=== PATIENT | male | born 1975 | race Two or more races ===

== ENCOUNTER 2020-09-27 18:47 | Emergency (ER) | payer OTHER ==
[~2020-09-27] VITALS: Ht 170.2 cm; Wt 99.0 kg
[2020-09-27 19:06] VITALS: BP 129/81
--- NOTE | 2020-09-27 19:40 | PHYS DOC ---
Past History Past Medical History: Other Additional Past Medical Histor: prostitis (PERCY SAMPSON APRN) Past Surgical History: Other Additional Past Surgical Histo: prk, vasectomy,rt meniscous removed (PERCY SAMPSON APRN) Alcohol Use: None (PERCY SAMPSON APRN) Adult General Chief Complaint Chief Complaint: KNEE INJURY HPI HPI Patient is a 45-year-old male patient who presents with left knee pain. Patient reports he had been working out at the gym, when he had lateral movement, and felt some pain on the lateral side of his left knee. States he has had some difficulty walking on his leg since that time, states he has been walking with a limp. Reports he has previously injured his right knee, in his left hip, states he thinks he may have just been compensating little more which caused the injury to his left knee today. States he has been putting ice on it, which has helped. Reports he does take meloxicam for his other discomfort, it does seem to be helping his pain somewhat. States he has seen orthopedics, has an upcoming orth opedics appointment for his hip. (PERCY SAMPSON APRN) Review of Systems Review of Systems Constitutional: Denies fever or chills [] Musculoskeletal: Denies back pain or joint pain other than to left knee, reports discomfort to lateral knee [] Integument: Denies rash or skin lesions [] Neurologic: Denies headache, focal weakness or sensory changes [] All other systems were reviewed and found to be within normal limits, except as documented in this note. (PERCY SAMPSON APRN) Allergies Allergies Allergies Coded Allergies Type Severity Reaction Last Updated Verified No Known Drug Allergies 09/27/20 No (PERCY SAMPSON APRN) Physical Exam Physical Exam Constitutional: Well developed, well nourished, no acute distress, non-toxic appearance. [] Neck: Normal range of motion, no tenderness, supple, no stridor. [] Cardiovascular:Heart rate regular rhythm, no murmur [] Lungs & Thorax: Bilateral breath sounds clear to auscultation [] Abdomen: Bowel sounds normal, soft, no tenderness, no masses, no pulsatile masses. [] Skin: Warm, dry, no erythema, no rash. [] Back: No tenderness, no CVA tenderness. [] Extremities: No tenderness, no cyanosis, no clubbing, ROM intact, no edema. Laxity and Discomfort on lateral manipulation. Full active and passive range of motion to extremity with no discomfort on motion [] Neurologic: Alert and oriented X 3, normal motor function, normal sensory function, no focal deficits noted. [] Psychologic: Affect normal, judgement normal, mood normal. [] (PECRY SAMPSON APRN) Current Patient Data Vital Signs Vital Signs Date Time Temp Pulse Resp B/P (MAP) Pulse Ox O2 Delivery O2 Flow Rate FiO2 09/27/20 19:06 98.4 80 18 (PERCY SAMPSON APRN) EKG EKG [] (PERCY SAMPSON APRN) Radiology/Procedures Radiology/Procedures no acute displaced fracture per Dr Prather @ 2002. [] (PERCY SAMPSON APRN) Heart Score Risk Factors: Risk Factors: DM, Current or recent (<one month) smoker, HTN, HLP, family history of CAD, obesity. Risk Scores: Risk Factors: DM, Current or recent (<one month) smoker, HTN, HLP, family history of CAD, obesity. (PERCY SAMPSON APRN) Course & Med Decision Making Course & Med Decision Making Pertinent Labs and Imaging studies reviewed. (See chart for details) [Discussed findings with patient, without noted fracture, discussed use of knee immobilizer, ice, ibuprofen, rest. Patient agreed with this plan patient has follow-up with orthopedics for other injury already have his right hip, will follow up with them as needed. Will keep patient immobilizer for 7 days, recommend follow-[place] to [place]evaluate any and consideration for orthopedics follow-up. Patient agreed with this plan of care with no further questions or concerns (PERCY SAMPSON APRN) Dragon Disclaimer Dragon Disclaimer This electronic medical record was generated, in whole or in part, using a voice recognition dictation system. (PERCY SAMPSON APRN) Departure Departure: Impression: Primary Impression: Sprain of lateral collateral ligament of left knee, initial encounter Disposition: 01 DC HOME SELF CARE/HOMELESS Condition: GOOD Referrals: PCP,UNKNOWN (PCP) Patient Instructions: Combined Knee Ligament Sprain-SportsMed, Ligament Sprain Additional Instructions: As we discussed, where the knee immobilizer for the next 7 days anytime you are up moving around. If you are unable to wear it for a period of time, use an Herman wrap to help support it a little bit try to avoid bending the knee as much as possible. Follow-up with your primary care provider in a week [place] to recheck your symptoms. If you continue to have discomfort, consider follow-up with orthopedics. You may continue to take your meloxicam for the discomfort and swelling. Attending Co-Sign Attending Co-Sign The patient was seen and interviewed as well as examined at the bedside. The lety lynch was reviewed. The case was discussed. Agree with the plan of care. (YESICA ALEXIS MD) PERCY SAMPSON APRN Sep 27, 2020 19:40 YESICA ALEXIS MD Sep 28, 2020 04:57
--- NOTE | 2020-09-27 20:21 | RAD ---
Examination: 4 views of the left knee HISTORY: History of injury COMPARISON: None available FINDINGS: The alignment of the knee joint grossly appears unremarkable. No acute fracture or dislocation identified. Mild knee joint effusion identified. IMPRESSION: 1. No acute osseous findings. 2. Small knee joint effusion. Electronically signed by: Chris Shane MD (09/27/2020 8:18 PM) [id number]
== END 2020-09-27 20:35 | disposition home or self-care (01) ==
LOC: ER 18:47
DX: S83.422A Sprain of lateral collateral ligament of left knee, initial encounter (principal); Z98.890 Other specified postprocedural states; X50.9XXA Other and unspecified overexertion or strenuous movements or postures, initial encounter; Y93.89 Activity, other specified; Y92.89 Other specified places as the place of occurrence of the external cause; Y99.0 Civilian activity done for income or pay
CPT/HCPCS: 29505; 73564; 99283

== ENCOUNTER 2020-11-13 15:02 | Emergency (ER) | payer OTHER ==
[~2020-11-13] VITALS: Ht 167.6 cm; Wt 97.7 kg
--- NOTE | 2020-11-13 15:11 | PHYS DOC ---
Past History Past Medical History: Other Additional Past Medical Histor: prostitis Past Surgical History: Other Additional Past Surgical Histo: prk, vasectomy,rt meniscous removed Alcohol Use: None Adult General HPI HPI Patient is a 45-year-old male here for possible ear infection. Reports 48 hours of right ear fullness and irritation without actual pain. He has been using Q- tips after showers which have helped. No trauma or recent febrile illness. Reports he has longstanding history of environmental allergies and has been taking Zyrtec and montelukast daily. He does admit mild postnasal drip but denies any fever, cough, chest pain, shortness of breath or other concerning systemic symptoms. No recent sick contacts or travel Review of Systems Review of Systems Fourteen body systems of review of systems have been reviewed. See HPI for pertinent positives and negative responses, other granados all other systems are negative, non-pertinent or non-contributory Allergies Allergies Allergies Coded Allergies Type Severity Reaction Last Updated Verified No Known Drug Allergies 09/27/20 No Physical Exam Physical Exam Constitutional: Well developed, well nourished, no acute distress, non-toxic appearance. HENT: Normocephalic, atraumatic, bilateral external ears normal, left tympanic membrane unremarkable, right tympanic membrane mildly bulging without erythema or injection consistent with fluid buildup without actual infection, oropharynx moist, no oral exudates, postnasal drip present nose normal. Eyes: PERRLA, EOMI, conjunctiva normal, no discharge. Neck: Normal range of motion, no tenderness, supple, no stridor. Cardiovascular: Heart rate regular per monitor Lungs & Thorax: No respiratory distress or accessory muscle use, bilateral chest rise Abdomen: Abdomen soft, non-tender, bowel sounds present in all quadrants, no guarding or rebound, nonacute abdomen. Skin: Warm, dry, no erythema, no rash. Back: No tenderness, no CVA tenderness. Extremities: No tenderness, no cyanosis, no clubbing, ROM intact, no edema. Neurologic: Alert and oriented X 3, grossly normal motor & sensory function, no focal deficits noted. Psychologic: Affect normal, judgement normal, mood normal. Current Patient Data Vital Signs Vital Signs Date Time Temp Pulse Resp B/P (MAP) Pulse Ox O2 Delivery O2 Flow Rate FiO2 11/13/20 15:17 98.1 94 16 138/80 (99) 96 Room Air EKG EKG [] Radiology/Procedures Radiology/Procedures [] Heart Score HEART Score for Chest Pain: HEART Score for Chest Pain Response (Comments) Value History Slighlty/Non-Suspicious 0 Age < 45 0 Risk Factors No Risk Factors 0 Total 0 Risk Factors: Risk Factors: DM, Current or recent (<one month) smoker, HTN, HLP, family history of CAD, obesity. Risk Scores: Risk Factors: DM, Current or recent (<one month) smoker, HTN, HLP, family history of CAD, obesity. Course & Med Decision Making Course & Med Decision Making Discussed with the patient all findings and diagnostic testing. I discussed most likely diagnosis of right ear fluid without acute otitis media infection. I discussed these findings are likely due to his chronic allergies, I discussed there is no indication for antibiotics at present given he is afebrile, hemodynamically stable and otherwise healthy male. I stressed need for close outpatient follow-up to review today's ER visit. Strict return precautions were also discussed at length with good understanding by patient. Patient voiced understanding and agreement with the plan. Patient knows to come back for repeat evaluation if concerning signs or symptoms present prior to outpatient follow- up. Hemodynamically stable, ambulatory and well-appearing at time of disposition. Dragon Disclaimer Dragon Disclaimer This electronic medical record was generated, in whole or in part, using a voice recognition dictation system. Departure Departure: Impression: Primary Impression: Seasonal allergies Disposition: 01 DC HOME SELF CARE/HOMELESS Condition: GOOD Referrals: PCP,UNKNOWN (PCP) Additional Instructions: You were evaluated in the emergency Department today for ear pain. Your physical exam suggests you have fluid behind the tympanic membrane of your right ear but there is no indication for antibiotics at present. Please continue supportive care practices. You are on the correct medications to treat your underlying seasonal allergies such as Zyrtec and montelukast. Please utilize Flonase if any runny nose occurs As discussed, please follow up with your primary care physician for repeat examination in upcoming 3 to 10 days after ER departure for repeat examination. If any concerning signs or symptoms present prior to outpatient follow-up please do not hesitate to come back for repeat evaluation It was a pleasure to take care of you and I wish you the best going forward SUZE BOLTON DO Nov 13, 2020 15:11
[2020-11-13 15:17] VITALS: BP 138/80
== END 2020-11-13 15:49 | disposition home or self-care (01) ==
LOC: ER 15:02
DX: J30.2 Other seasonal allergic rhinitis (principal)
CPT/HCPCS: 99282

== ENCOUNTER 2020-12-30 02:28 | Emergency (ER) | payer OTHER ==
[~2020-12-30] VITALS: Ht 167.6 cm; Wt 98.0 kg
--- NOTE | 2020-12-30 02:58 | PHYS DOC ---
Past History Past Medical History: Other Additional Past Medical Histor: prostitis Past Surgical History: Other Additional Past Surgical Histo: vasectomy Alcohol Use: None Adult General Chief Complaint Chief Complaint: BACK PAIN OR INJURY HPI HPI Patient is an otherwise healthy 45-year-old male who presents to the emergency department with a chief complaint of chest discomfort. 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 States that he lost 25 to 30 pounds really quickly and began to have heartburn daily. States that after making height and weight he began to eat normally again and is beginning to put weight back on is almost back to where he was. States that over the last couple of weeks he has had heartburn daily, but has not taken any heartburn medicine. States that over the last few days the heartburn felt like it went around the right side of his chest and up into his upper back. Denies any association with food. Denies any aggravating or alleviating factors. Denies any cardiac history, alcohol, tobacco or drug use. Denies any serious family history of cardiac issues. States he is now eating and drinking normally for him. States he is making urine and stool normally for him with no blood in either. Review of Systems Review of Systems Review of systems otherwise unremarkable except noted in HPI Allergies Allergies Allergies Coded Allergies Type Severity Reaction Last Updated Verified No Known Drug Allergies 09/27/20 No Physical Exam Physical Exam Constitutional: Well developed, well nourished, no acute distress, non-toxic appearance. [] HENT: Normocephalic, atraumatic, oropharynx moist, no oral exudates, nose normal. [] Eyes: conjunctiva normal, no discharge. [] Neck: Normal range of motion, no tenderness, Cardiovascular:Heart rate regular rhythm, no murmur [] Lungs & Thorax: Bilateral breath sounds clear to auscultation [] Abdomen: Bowel sounds normal, soft, no tenderness, no masses, no pulsatile masses. [] Skin: Warm, dry, no erythema, no rash. [] Back: No tenderness, Extremities: No tenderness, ROM intact, no edema. [] Neurologic: Alert and oriented X 3, normal motor function, normal sensory function, no focal deficits noted. [] Psychologic: Affect normal, judgement normal, mood normal. [] Current Patient Data Vital Signs Vital Signs Date Time Temp Pulse Resp B/P (MAP) Pulse Ox O2 Delivery O2 Flow Rate FiO2 12/30/20 02:28 99.6 81 20 146/97 (113) 98 Room Air EKG EKG Rate of 76, QRS of 92, QTC of 389, no STEMI [] Radiology/Procedures Radiology/Procedures []FINDINGS: The cardiomediastinal silhouette is within normal limits. Lungs are clear. There are no significant pleural effusions. There is no pulmonary vascular congestion. No pneumothorax. No suspicious osseous abnormality. IMPRESSION: There is no acute cardiopulmonary process. Electronically signed by: Christiana Núñez MD (12/30/2020 3:04 AM) [facility] Heart Score HEART Score for Chest Pain: HEART Score for Chest Pain Response (Comments) Value History Slighlty/Non-Suspicious 0 ECG Normal 0 Age >45 - < 65 1 Risk Factors No Risk Factors 0 Total 1 Risk Factors: Risk Factors: DM, Current or recent (<one month) smoker, HTN, HLP, family history of CAD, obesity. Risk Scores: Risk Factors: DM, Current or recent (<one month) smoker, HTN, HLP, family history of CAD, obesity. Course & Med Decision Making Course & Med Decision Making Patient is a 45-year-old male who presents with a chief complaint of heartburn and muscle ache in his upper back Vital signs not concerning. Physical exam noted above. EKG noted above and not concerning. Discussed all findings with patient and advised eating an appropriate nutritious diet and staying well-hydrated. Advised [place] and need for chronic heartburn/GERD evaluation and management including possible EGD. Advised beginning a short course of [id number] PPIs. Advised to come back to the emergency department immediately with any new or concerning symptoms. Patient grateful, verbalized understanding and agreed with plan of discharge. [] Dragon Disclaimer Dragon Disclaimer This electronic medical record was generated, in whole or in part, using a voice recognition dictation system. Departure Departure: Impression: Primary Impression: Heartburn Additional Impression: Generalized muscle ache Disposition: 01 DC HOME SELF CARE/HOMELESS Condition: GOOD Referrals: PCP,UNKNOWN (PCP) Patient Instructions: Diet for Gastroesophageal Reflux Disease, Adult, Heartburn, Muscle Cramps, Muscle Cramps, [id number] Additional Instructions: Please read all of the attached information to understand the things we discussed on your visit. Please maintain a proper nutritious diet and plenty of hydration. Please begin an [id number] heartburn medication like omeprazole until you can discuss your heartburn with your primary care physician and need for continued management or scope of your esophagus/EGD. Please contact your primary care physician first thing this morning to set up a post ER follow-up visit to discuss your issues. Please come back to the emergency department immediately with any new or concerning symptoms. Problem Qualifiers NUZHAT CABRAL MD Dec 30, 2020 02:58
[2020-12-30] MEDS ORDERED: LIDO:MAALOX 1:1 20 ML SINGLE DOSE. PO ONE ×2 (03:00→04:00)
--- NOTE | 2020-12-30 03:07 | RAD ---
XR CHEST 1V 12/30/2020 2:52 AM INDICATION: Chest discomfort COMPARISON: None available TECHNIQUE: Portable frontal view of the chest is provided. FINDINGS: The cardiomediastinal silhouette is within normal limits. Lungs are clear. There are no significant pleural effusions. There is no pulmonary vascular congestion. No pneumothora x. No suspicious osseous abnormality. IMPRESSION: There is no acute cardiopulmonary process. Electronically signed by: Christiana Núñez MD (12/30/2020 3:04 AM) [facility]
[2020-12-30 03:48] VITALS: BP 127/45
--- NOTE | 2020-12-30 04:31 | EKG ---
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
== END 2020-12-30 03:49 | disposition home or self-care (01) ==
LOC: ER 02:28
DX: R12 Heartburn (principal); R07.89 Other chest pain; M79.10 Myalgia, unspecified site
CPT/HCPCS: 71045; 93005; 99283; 99284

== ENCOUNTER 2020-12-31 00:42 | Emergency (ER) | payer OTHER ==
[~2020-12-31] VITALS: Ht 167.6 cm; Wt 98.0 kg
--- NOTE | 2020-12-31 00:49 | PHYS DOC ---
Past History Past Medical History: Other Additional Past Medical Histor: prostitis Past Surgical History: Other Additional Past Surgical Histo: vasectomy Alcohol Use: None General Adult HPI: HPI: ".. I was just here yesterday..they said I had reflux..but today.. I have a headache... 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 Patient recently on a very restrictive diet to meet goal weight for her [employer]. Patient denies any trauma. No history of bad food intake. No history of travel. No overseas assignments. 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 Normally follows at [facility]. Recent evaluated for GI complaints felt to be's reflux/GERD. Patient has not filled his prescription from previous visit. Review of Systems: Review of Systems: Constitutional: Denies fever or chills Eyes: Denies change in visual acuity HENT: Denies nasal congestion or sore throat Respiratory: Denies cough or shortness of breath Cardiovascular: Denies chest pain or edema GI: Complains of GERD : Denies dysuria Musculoskeletal: Denies back pain or joint pain Integument: Denies rash Neurologic: Complains of headache,. Denies focal weakness or sensory changes Endocrine: Denies polyuria or polydipsia Lymphatic: Denies swollen glands Psychiatric: Denies depression or anxiety Family History: Family History: Noncontributory to presentation Current Medications: Current Meds: See nursing for home meds Allergies: Allergies: Allergies Coded Allergies Type Severity Reaction Last Updated Verified No Known Drug Allergies 09/27/20 No Physical Exam: PE: Constitutional: Well developed, well nourished, no acute distress, non-toxic appearance. [] HENT: Normocephalic, atraumatic, bilateral external ears normal, oropharynx moist, no oral exudates, nose normal. [] Eyes: PERRLA, EOMI, conjunctiva normal, no discharge. [] Neck: Normal range of motion, no tenderness, supple, no stridor. [] Cardiovascular:Heart rate regular rhythm, no murmur [] Lungs & Thorax: Bilateral breath sounds clear to auscultation [] Abdomen: Bowel sounds normal, soft, no tenderness, no masses, no pulsatile cherry s. [] Skin: Warm, dry, no erythema, no rash. Multiple tattoos. Back: No tenderness, no CVA tenderness. [] Extremities: No tenderness, no cyanosis, no clubbing, ROM intact, no edema. [] Neurologic: Alert and oriented X 3, normal motor function, normal sensory function, no focal deficits noted. [] DTRs +2 patella and brachial. No drift. Amatory without problems. Finger-nose good. Distal vibratory intact. Psychologic: Affect anxious, judgement normal, mood normal. [] EKG: EKG: [] Radiology/Procedures: Radiology/Procedures: [] Heart Score: Risk Factors: Risk Factors: DM, Current or recent (<one month) smoker, HTN, HLP, family history of CAD, obesity. Risk Scores: Score 0 - 3: 2.5% MACE over next 6 weeks - Discharge Home Score 4 - 6: 20.3% MACE over next 6 weeks - Admit for Clinical Observation Score 7 - 10: 72.7% MACE over next 6 weeks - Early Invasive Strategies Course & Med Decision Making: Course & Med Decision Making Pertinent Labs and Imaging studies reviewed. (See chart for details) Patient keep follow-up with [facility]. Patient continue his antacid regimen. Patient take Tylenol and ibuprofen for pain. For marked pain may take Vicoprofen. Follow-up with primary care. Would get rapid Covid at [facility]. Recommend patient self isolate until results of rapid Covid obtained. Impression: 1. Headache 2. History of GERD 3. 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 Departure Departure: Referrals: PCP,UNKNOWN (PCP) Dragon Disclaimer This chart was dictated in whole or in part using Voice Recognition software in a busy, high-work load, and often noisy Emergency Department environment. It may contain unintended and wholly unrecognized errors or omissions. Dragon Disclaimer This chart was dictated in whole or in part using Voice Recognition software in a busy, high-work load, and often noisy Emergency Department environment. It may contain unintended and wholly unrecognized errors or omissions. YESICA ALEXIS MD Dec 31, 2020 00:49
[2020-12-31] MEDS ORDERED: KETOROLAC 60 MG/2 ML VIAL. IM ONE (01:15)
[2020-12-31] MEDS ORDERED: FAMOTIDINE 20 MG TABLET PO ONE (01:15)
[2020-12-31] MEDS ORDERED: MORPHINE SULFATE 10 MG/ML SYRINGE. ONE (01:53)
[2020-12-31] MEDS ORDERED: ONDANSETRON ODT 4 MG TAB.RAPDIS ONE (01:53)
[2020-12-31] MEDS ORDERED: MORPHINE SULFATE 10 MG/ML SYRINGE. SQ ONE (02:00)
[2020-12-31] MEDS ORDERED: ONDANSETRON ODT 4 MG TAB.RAPDIS PO ONE (02:00)
[2020-12-31 02:20] VITALS: BP 147/86
== END 2020-12-31 02:21 | disposition home or self-care (01) ==
LOC: ER 00:42
DX: R51.9 Headache, unspecified (principal); R06.00 Dyspnea, unspecified; K21.9 Gastro-esophageal reflux disease without esophagitis
CPT/HCPCS: 96372; 99284; J1885; J2270; Q0162

== ENCOUNTER 2021-03-21 17:04 | Emergency (ER) | payer OTHER ==
[~2021-03-21] VITALS: Ht 167.6 cm; Wt 98.0 kg
[2021-03-21 17:22] VITALS: BP 141/98
[2021-03-21] MEDS ORDERED: LIDO1ADH TP (18:47)
[2021-03-21] MEDS ORDERED: METH-560 PO (18:47)
[2021-03-21] MEDS ORDERED: HYDR-2155 PO (18:47)
--- NOTE | 2021-03-21 18:50 | PHYS DOC ---
Past History Past Medical History: Other Additional Past Medical Histor: prostitis Past Surgical History: Other Additional Past Surgical Histo: vasectomy Alcohol Use: None Adult General Chief Complaint Chief Complaint: UPPER EXTREMITY PAIN [facility] HPI Patient is a 45-year-old male presents emergency department with chief complaint of right upper shoulder discomfort that has been going on for the past month. Patient states he has been having these symptoms off and on since 2012. Patient believes his symptoms were originally exacerbated from an overuse injury. Dylan keith states he is usually able to take care of this type of pain exacerbation with heating pads, and ibuprofen. However patient reports he has chronic left hip pain now and is pending surgery for left hip impingement problems and currently taking meloxicam which prevents him from taking any other NSAID type medication. Patient reports intermittent numbness and tingling to his right upper extremity. Patient denies any swelling of his right upper extremity. Patient denies any recent trauma to his neck or upper extremities or other parts of his body. Patient denies any other physical complaints or physical concerns. Review of Systems Review of Systems 14 body systems of review of systems have been reviewed. See HPI for pertinent positives and negative responses, otherwise all other systems are negative, nonpertinent or noncontributory. Allergies Allergies Allergies Coded Allergies Type Severity Reaction Last Updated Verified No Known Drug Allergies 09/27/20 No Physical Exam Physical Exam Constitutional: Well developed, well nourished, no acute distress, non-toxic appearance. 45-year-old male in no apparent distress. HENT: Normocephalic, atraumatic, bilateral external ears normal, oropharynx moist, no oral exudates, nose normal. Eyes: Conjunctiva appeared normal, no obvious drainage from eyes, patient tracking normally. Neck: Normal range of motion, no tenderness, supple, no stridor. No meningismus signs, no nuchal rigidity. Cardiovascular: No peripheral cyanosis, distal cap refill less than 2 seconds. Lungs & Thorax: Patient in no apparent respiratory distress. Skin: Warm, dry, no erythema, no rash. Back: No tenderness, no CVA tenderness. Except for right trapezial muscle, pain to palpation along muscle and adjacent muscular structure. Extremities: No tenderness, no cyanosis, no clubbing, ROM intact, no edema. Full passive range of motion of right upper extremity, no crepitus appreciated. No swelling or deformities appreciated of the right upper extremity. Neurologic: Alert and oriented X 3, normal motor function, normal sensory function, no focal deficits noted. Psychologic: Affect normal, judgement normal, mood normal. Current Patient Data Vital Signs Vital Signs Date Time Temp Pulse Resp B/P (MAP) Pulse Ox O2 Delivery O2 Flow Rate FiO2 03/21/21 17:22 98.2 78 16 141/98 (112) 98 Room Air EKG EKG [] Radiology/Procedures Radiology/Procedures [] Heart Score C/O Chest Pain: No Risk Factors: Risk Factors: DM, Current or recent (<one month) smoker, HTN, HLP, family history of CAD, obesity. Risk Scores: Risk Factors: DM, Current or recent (<one month) smoker, HTN, HLP, family history of CAD, obesity. Course & Med Decision Making Course & Med Decision Making Pertinent Labs and Imaging studies reviewed. (See chart for details) 45-year-old male, vital signs reviewed, presents emergency department concerning right-sided upper shoulder pain for the past month. Physical examination consistent with strain of left trapezius muscle versus neuropathy pain. Discussed findings with patient, recommended starting on muscle relaxer Robaxin, lidocaine patches for pain, heating pad use for discomfort, will provide work excuse for recommendation of no use of right upper extremity for 1 week, this will give him time to follow-up at the [facility] for ongoing investigation of this chronic pain and consideration of MRI of neck and shoulder to rule out neuropathy component. Patient gave verbal understanding of discharge home instructions, muscle relaxer use, lidocaine patch use, heating pad use, no use of left right upper extremity x1 week, follow-up at [facility] for reexamination and follow-up for MRI. Patient gave verbal understanding of continue to use his prescribed meloxicam for left hip impingement problems, return to ER precautions or concerns, patient had no further questions or concerns and was discharged home without incident. Dragon Disclaimer Dragon Disclaimer This electronic medical record was generated, in whole or in part, using a voice recognition dictation system. Departure Departure: Impression: Primary Impression: Strain of right trapezius muscle Disposition: HOME / SELF CARE / HOMELESS Condition: GOOD Referrals: SANTOSH LUCERO (PCP) Additional Instructions: You were seen today in the emergency department for pain in your right upper shoulder, I have believe there may be a neuropathy component to this pain. I have recommended you follow-up at the [facility] for MRI of your neck and left shoulder. I am prescribing you lidocaine patches along with Robaxin as a muscle relaxer. I have given you a work excuse that we will read no use of left upper extremity for 1 week. Please use this time to follow-up with [facility] for reexamination of this ongoing problem. Please return to the emergency department for worsening symptoms or other concerns. EMERGENCY DEPARTMENT GENERAL DISCHARGE INSTRUCTIONS Thank you for coming to [facility] (ED) today and trusting us with you care. We trust that you had a positivie experience in our Emergency Department. If you wish to speak to the department management, you may call the director at [phone]. YOUR FOLLOW UP INSTRUCTIONS ARE FOLLOWS: 1. Do you have a private Doctor? If you do not have a private doctor, please ask for a resource list of physicians or clinics that may be able to assist you with fo llow up care. 2. The Emergency Physician has interpreted your x-rays. The X-Ray specialist will also review them. If there is a change in the findings, you will be notified in 48 hours when at all possible. 3. A lab test or culture has been done, your results will be reviewed and you will be notified if you need a change in treatment. ADDITIONAL INSTRUCTIONS AND INFORMATION: 1. Your care today has been supervised by a physician who is specially trained in emergency care. Many problems require more than one evaluation for a complete diagnosis and treatment. We recommend that you schedule your follow up appointment as recommended to ensure complete treatment of you illness or injury. If you are unable to obtain follow up care and continue to have a problem, or if your condition worsens, we recommend that you return to the ED. 2. We are not able to safely determine your condition over the phone nor are we able to give sound medical advice over the phone. For these safety reasons, if you call for medical advice we will ask you to come to the ED for further evaluation. 3. If you have any questions regarding these discharge instructions please call the ED at [phone]. SAFETY INFORMATION: In the interest of safety, wellness, and injury prevention; we encourage you to wear your sealbelt, if you smoke; quite smoking, and we encourage family to use a protecti ve helmet for bicycling and other sporting events that present an increased risk for head injury. IF YOUR SYMPTOMS WORSEN OR NEW SYMPTOMS DEVELOP, OR YOU HAVE CONCERNS ABOUT YOUR CONDITION; OR IF YOUR CONDITION WORSENS WHILE YOU ARE WAITING FOR YOUR FOLLOW UP APPOINTMENT; EITHER CONTACT YOUR PRIMARY CARE DOCTOR, THE PHYSICIAN WHOSE NAME AND NUMBER YOU WERE GIVEN, OR RETURN TO THE ED IMMEDIATELY. Scripts Hydrocodone Bit/Acetaminophen (HYDROCODONE-APAP 5-325 ) 1 Each Tablet 1 TAB PO PRN Q6HRS PRN for PAIN, #10 TAB 0 Refills Prov: KEVIN ZARAGOZA APRN 03/21/21 Methocarbamol (METHOCARBAMOL) 750 Mg Tablet 750 MG PO Q4HRS for MUSCLE PAIN, #30 TAB 0 Refills Prov: KEVIN ZARAGOZA APRN 03/21/21 Lidocaine/Menthol (LIDOPATCH) 1 Each Adh..patch 1 CÉSAR TP BID for MUSCLE PAIN for 30 Days, #60 EACH 0 Refills Prov: KEVIN ZARAGOZA APRN 03/21/21 Problem Qualifiers Primary Impression: Strain of right trapezius muscle Encounter type: initial encounter Qualified Codes: S46.811A - Strain of other muscles, fascia and tendons at shoulder and upper arm level, right arm, initial encounter KEVIN ZARAGOZA APRN Mar 21, 2021 18:50
== END 2021-03-21 18:57 | disposition home or self-care (01) ==
LOC: ER 17:04
DX: S29.012A Strain of muscle and tendon of back wall of thorax, initial encounter (principal); G89.29 Other chronic pain; X50.9XXA Other and unspecified overexertion or strenuous movements or postures, initial encounter; Y93.89 Activity, other specified; Y92.89 Other specified places as the place of occurrence of the external cause; Y99.8 Other external cause status
CPT/HCPCS: 99283